=== PATIENT | female | born 1965 | race Caucasian/White ===

== ENCOUNTER 2019-01-17 08:23 | Emergency (ER) | payer BC ==
[2019-01-17 08:39] VITALS: BP 143/77
--- NOTE | 2019-01-17 09:22 | EDM.PDOC ---
ED HPI GENERAL MEDICAL PROBLEM - General Chief Complaint: Skin Complaint Stated Complaint: SKIN COMPLAINT/POSS ALLERGIC REACTION Time Seen by Provider: 01/17/19 08:47 Source of Information: Reports: Patient, RN Notes Reviewed History Limitations: Reports: No Limitations - History of Present Illness INITIAL COMMENTS - FREE TEXT/NARRATIVE: The patient states that she developed a rash to her left cheek area on 11/26/2018 , after she scraped her cheek on a box from [employer]. The rash was pruritic, but waxed and waned. She states that her lips then became puffy on 12/20/2018, she developed a rash to her neck and shoulders. She was seen at the walk-in clinic on 12/21/2018. She states that no tests were done, but that it was recommended that she take both Zantac and Benadryl. She states that her lip puffiness decreased, but then the rash spread down her arms and onto her palms. She then saw her PCP on 12/30/2018. Her PCP recommended triamcinolone cream to her body, along with oral prednisone, and metronidazole cream to her face. The patient states that the cream helped with her rash, although it made her feel sick. Or , her lips became puffy again. She spoke to her PCP over the phone, and was started on oral prednisone 20 mg a day for 5 days, along with continuation of Zyrtec. The patient states that this combination helped, but the course was finished this past 01/13/2019. She states that her lips began burning on 01/14/2019, then became puffy again on 01/15/2019, along with worsening of her rash. The patient states that she has an appointment to see an Chip Person on 2018. The patient was hoping that I might be able to prescribe something to treat her symptoms until she can see him. It is unclear why she came to the ED instead of returning to see her PCP. The patient's PCP is Jeanette Mason. The Chip Person that she will be seeing is Dr. Walt Garrett. 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: - Past Surgical History HEENT Surgical History: Reports: Cataract Surgery (bilateral), Eye Surgery ( left x 3), Laser Surgery (left, x 1) Other HEENT Surgeries/Procedures: L eye cataract and L eye surgery Social & Family History - Tobacco Use Smoking Status *Q: Never Smoker - Caffeine Use Caffeine Use: Reports: None - Alcohol Use Alcohol Use History: No - Recreational Drug Use Recreational Drug Use: No - Living Situation & Occupation Living situation: Reports: , with Spouse Occupation: Unemployed ED ROS GENERAL - Review of Systems Review Of Systems: ROS reveals no pertinent complaints other than HPI. ED EXAM, SKIN/RASH Exam: See Below General Appearance: Alert, WD/WN, No Apparent Distress Eye Exam: Right Eye: Conjunctival Injection, Left Eye: Normal Inspection, Bilateral Eye: EOMI Ears: Normal External Exam, Hearing Grossly Normal Nose: Normal Inspection Throat/Mouth: Normal Inspection, Normal Lips, Normal Voice, No Airway Compromise Head: Atraumatic, Other (Large parch of dry erythema to left cheek and zygomaticus) Neck: Normal Inspection, Full Range of Motion Respiratory/Chest: No Respiratory Distress, Lungs Clear, Normal Breath Sounds, No Accessory Muscle Use Cardiovascular: Normal Peripheral Pulses, Regular Rate, Rhythm, No Edema, No Gallop, No JVD, No Murmur, No Rub Peripheral Pulses: 4+: Radial (L), Radial (R) GI/Abdominal: Normal Bowel Sounds, Soft, Non-Tender, No Organomegaly, No Distention, No Abnormal Bruit, No Mass (Female) Exam: Deferred Rectal (Female) Exam: Deferred Back Exam: Normal Inspection, Full Range of Motion, NT Extremities: Normal Range of Motion, No Pedal Edema, Normal Capillary Refill Neurological: Alert, Oriented, Normal Cognition, No Motor/Sensory Deficits Psychiatric: Normal Affect Skin: Warm, Dry, Intact, Normal Color, Other (Nonblanching erythematous papular rash involving the trunk and extremities, excluding the palms and soles. 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 Her rash is not urticaria; this is not an allergic reaction. While oral steroids may provide her some temporary relief, I believe the patient would be better served seeing a PCP, having initial autoimmune tests ordered, with possible referral to a Auto Transmission Mechanic. The patient understands my rationale. In the meantime, the patient may safely continue to take Zyrtec, which has been helping her pruritus. Departure - Departure Time of Disposition: 09:22 Disposition: Home, Self-Care 01 Condition: Good Clinical Impression: Pruritic erythematous rash - Discharge Information *PRESCRIPTION DRUG MONITORING PROGRAM REVIEWED*: Not Applicable *COPY OF PRESCRIPTION DRUG MONITORING REPORT IN PATIENT TAMIR: Not Applicable Instructions: Rash Referrals: Marzena Willoughby MD [Physician] - Forms: ED Department Discharge Additional Instructions: You were seen in the emergency room for a chronic itchy rash on your face and body. Based on your history and physical examination, your rash appears to be related to an autoimmune disorder. It is not an allergic reaction. We recommend that you follow-up with Dr. Marzena Willoughby for initial tests, with possible referral to a Auto Transmission Mechanic. In the meantime, you may continue to safely use Zyrtec to help with your itchiness. If any other problems, please do not hesitate to return to the ER.
== END 2019-01-17 09:28 | disposition home or self-care (01) ==
LOC: JD.ED 08:23
DX: L29.9 Pruritus, unspecified (principal); Z79.899 Other long term (current) drug therapy; Z88.2 Allergy status to sulfonamides
CPT/HCPCS: 99283